=== PATIENT | female | born 1965 | race Caucasian/White ===

== ENCOUNTER 2021-09-10 09:00 | Emergency (ER) | payer OTHER ==
[~2021-09-10] VITALS: Ht 170.2 cm; Wt 86.3 kg
[2021-09-10 09:05] VITALS: BP 159/80
--- NOTE | 2021-09-10 10:02 | RAD ---
EXAM: Right knee, 3 views. HISTORY: Pain and swelling. COMPARISON: None. FINDINGS: 3 views of the right knee are obtained. There is no fracture, dislocation or subluxation. T here is a small joint effusion. IMPRESSION: Small joint effusion. No acute osseous finding. Electronically signed by: Katherine Villa MD (09/10/2021 10:00 AM) [id number]
[2021-09-10] MEDS ORDERED: MELO7.5T5 PO (10:19)
--- NOTE | 2021-09-10 10:19 | PHYS DOC ---
Past History Past Surgical History: No Surgical History Alcohol Use: None Adult General Chief Complaint Chief Complaint: KNEE INJURY HPI HPI Patient is a 56 year old female who presents with complaint of right knee pain and swelling. Patient states her symptoms started 2 weeks ago. Denies any known injury. States that the pain is worse with ambulation and with full flexi on at the knee. Patient states that the pain feels to be within the joint itself. The patient followed with her primary care provider and states that she is scheduled to have an MRI of her knee performed within the next week. She states however that her pain has been worsening and has caused difficulty with her sleeping at night. Has not taken any medications for symptoms at this time. Denies swelling or pain in the lower leg, shortness of breath, chest pain, or lightheadedness. Has not noticed any redness, warmth, or lymphangitic streaking in the lower extremity. Review of Systems Review of Systems Constitutional: Denies fever or chills [] Eyes: Denies change in visual acuity, redness, or eye pain [] HENT: Denies nasal congestion or sore throat [] Respiratory: Denies cough or shortness of breath [] Cardiovascular: Denies chest pain or edema [] GI: Denies abdominal pain, nausea, vomiting, bloody stools or diarrhea [] : Denies dysuria or hematuria [] Musculoskeletal: Right knee pain and swelling, denies lower leg pain [] Integument: Denies rash or skin lesions [] Neurologic: Denies headache, focal weakness or sensory changes [] All other systems were reviewed and found to be within normal limits, except as documented in this note. Physical Exam Physical Exam Constitutional: Well developed, well nourished, no acute distress, non-toxic appearance. [] HENT: Normocephalic, atraumatic, bilateral external ears normal, oropharynx moist, no oral exudates, nose normal. [] Eyes: PERRLA, EOMI, conjunctiva normal, no discharge. [] Neck: Normal range of motion, no tenderness, supple, no stridor. [] Cardiovascular:Heart rate regular rhythm, no murmur [] Lungs & Thorax: Bilateral breath sounds clear to auscultation [] Abdomen: Bowel sounds normal, soft, no tenderness, no masses, no pulsatile masses. [] Skin: Warm, dry, no erythema, no rash. [] Back: No tenderness, no CVA tenderness. [] Extremities: No joint space tenderness to right knee, patient notes pain with full flexion, denies pain with extension, negative Augustine, negative Dante, denies pain with valgus or varus stressing. [] Neurologic: Alert and oriented X 3, normal motor function, normal sensory function, no focal deficits noted. [] Current Patient Data Vital Signs Vital Signs Date Time Temp Pulse Resp B/P (MAP) Pulse Ox O2 Delivery O2 Flow Rate FiO2 09/10/21 09:05 98.0 87 16 159/80 (668) 32 Room Air Lab Results Not performed EKG EKG Not performed [] Radiology/Procedures Radiology/[place] [address] IMAGING REPORT Signed PATIENT: JOHNATHAN OBRIEN ACCOUNT: [id number] : 1965 LOCATION: ER AGE: 56 SEX: F EXAM STATUS: REG ER ORD. PHYSICIAN: MARTHA SCHULTZ MD REASON: right knee pain and swelling for 2 weeks, NKI PROCEDURE: KNEE RIGHT 4V EXAM: Right knee, 3 views. HISTORY: Pain and swelling. COMPARISON: None. FINDINGS: 3 views of the right knee are obtained. There is no fracture, dislocation or subluxation. There is a small joint effusion. IMPRESSION: Small joint effusion. No acute osseous finding. Electronically signed by: Katherine Villa MD (09/10/2021 10:00 AM) [id number] DICTATED AND SIGNED BY: KATHERINE VILLA MD DATE: 09/10/21 0959 CC: MARTHA SCHULTZ MD; PCP,NO ~ [] Heart Score C/O Chest Pain: No Risk Factors: Risk Factors: DM, Current or recent (<one month) smoker, HTN, HLP, family history of CAD, obesity. Risk Scores: Risk Factors: DM, Current or recent (<one month) smoker, HTN, HLP, family history of CAD, obesity. Course & Med Decision Making Course & Med Decision Making Pertinent Labs and Imaging studies reviewed. (See chart for details) X-rays negative for fracture or malalignment. I do not elicit significant instability of the knee on examination. Patient does note pain with full flexion of the knee. Suspect possible soft tissue injury intra-articular injury. Recommend Sohail wrap to right knee and patient was prescribed daily Mobic for pain treatment. Recommend follow-up with primary care provider after MRI obtained. Recommend return to the emergency department for any worsening symptoms. Patient voiced understanding and in agreement with treatment plan. [] Dragon Disclaimer Dragon Disclaimer This electronic medical record was generated, in whole or in part, using a voice recognition dictation system. Departure Departure: Impression: Primary Impression: Right knee pain Disposition: HOME / SELF CARE / HOMELESS Condition: STABLE Referrals: PCP,MERLINE (PCP) Patient Instructions: Knee Pain Additional Instructions: Follow-up with your primary care provider in 1 week for reevaluation. Return to the emergency department for any worsening symptoms. Scripts Meloxicam (MOBIC) 7.5 Mg Tablet 1 TAB PO DAILY, #30 TAB 0 Refills Prov: MARTHA SCHULTZ MD 09/10/21 Problem Qualifiers Primary Impression: Right knee pain Chronicity: acute Qualified Codes: M25.561 - Pain in right knee MARTHA SCHULTZ MD September 10, 2021 10:19
== END 2021-09-10 10:26 | disposition home or self-care (01) ==
LOC: ER 09:00
DX: M25.561 Pain in right knee (principal)
CPT/HCPCS: 73564; 99283